=== PATIENT | female | born 2000 | race Caucasian/White ===

== ENCOUNTER 2024-02-28 05:40 | Emergency (ER) | payer OTHER ==
[~2024-02-28] VITALS: Ht 170.2 cm; Wt 116.0 kg
[2024-02-28] MEDS ORDERED: PRENTAB53 PO (05:47)
[2024-02-28] MEDS ORDERED: VENL75TA2 PO (05:47)
[2024-02-28 06:07] LABS: APPEARANCE, URINE HAZY (CLEAR); BACTERIA, URINE AUTO NEGATIVE (NEGATIVE); BILIRUBIN, URINE AUTO NEGATIVE (NEGATIVE); BLOOD, URINE BLOOD NEGATIVE (NEGATIVE); COLOR, URINE YELLOW (YELLOW); GLUCOSE, URINE (UA) AUTO NEGATIVE (NEGATIVE); KETONE, URINE AUTO NEGATIVE (NEGATIVE); LEUKOCYTE ESTERASE, URINE AUTO NEGATIVE (NEGATIVE); MUCUS, URINE SMALL (NEGATIVE); NITRITE, URINE AUTO NEGATIVE (NEGATIVE); PROTEIN, URINE AUTO NEGATIVE (NEGATIVE); RBC, URINE AUTO 2 /HPF (0-3); SPECIFIC GRAVITY URINE AUTO 1.011 (1.002-1.035); SQUAMOUS EPITHELIAL CELL UR AU 4 /HPF (0-6); UROBILINOGEN, URINE AUTO 0.2 mg/dL (0.0-2.0); WBC, URINE AUTO 1 /HPF (0-3)
[2024-02-28 06:33] LABS: BASO % 0.4 % (0.0-1.0); EOS # 0.1 10^3/uL (0.0-0.5); EOS % 1.9 % (0.0-3.0); HEMATOCRIT 39.1 % (36.0-47.0); HEMOGLOBIN 12.7 g/dl (12.0-15.5); LYMPH # 1.9 10^3/uL (1.5-5.0); LYMPH % 25.9 % (24.0-44.0); MEAN CORPUSCULAR HEMOGLOBIN 28.3 pg (27.0-33.0); MEAN CORPUSCULAR HGB CONC 32.5 g/dl (32.0-36.5); MEAN CORPUSCULAR VOLUME 87.3 fl (80.0-96.0); MONO # 0.4 10^3/uL (0.0-0.8); MONO % 4.8 % (2.0-8.0); NEUTROPHILS # 4.8 10^3/uL (1.5-8.5); NEUTROPHILS % 66.2 % (36.0-66.0); PLATELET COUNT, AUTOMATED 289 10^3/uL (150-450); RED BLOOD COUNT 4.48 10^6/uL (4.00-5.40); WHITE BLOOD COUNT 7.2 10^3/uL (4.0-10.0)
[2024-02-28 06:55] LABS: BLOOD UREA NITROGEN 7 MG/DL (9-23); CALCIUM LEVEL 9.5 MG/DL (8.5-10.1); CARBON DIOXIDE LEVEL 24 MMOL/L (20-31); CHLORIDE LEVEL 106 MMOL/L (98-107); CREATININE FOR GFR 0.61 MG/DL (0.55-1.30); GLOMERULAR FILTRATION RATE > 60.0 (>60); GLUCOSE, FASTING 88 MG/DL (60-100); SODIUM LEVEL 140 MMOL/L (136-145)
[2024-02-28 07:10] VITALS: BP 119/65; TEMP 98.1; O2SAT 99
[2024-02-28 07:10] LABS: HCG, SERUM QUANTITATIVE 3365.7 MIU/ML (<4.2)
== END 2024-02-28 08:06 | disposition home or self-care (01) ==
LOC: M ED 05:40
DX: O20.0 Threatened abortion (principal); O99.280 Endocrine, nutritional and metabolic diseases complicating pregnancy, unspecified trimester; Z79.810 Long term (current) use of selective estrogen receptor modulators (SERMs)

== ENCOUNTER 2024-03-12 07:36 | Emergency (ER) | payer OTHER ==
[~2024-03-12] VITALS: Ht 170.2 cm; Wt 177.7 kg
[~2024-03-12 07:36] MED LIST: PRENTAB53 PO; VENL75TA2 PO
[2024-03-12 08:34] LABS: APPEARANCE, URINE HAZY (CLEAR); BACTERIA, URINE AUTO NEGATIVE (NEGATIVE); BILIRUBIN, URINE AUTO NEGATIVE (NEGATIVE); BLOOD, URINE BLOOD 3+ (NEGATIVE); COLOR, URINE YELLOW (YELLOW); GLUCOSE, URINE (UA) AUTO NEGATIVE (NEGATIVE); KETONE, URINE AUTO NEGATIVE (NEGATIVE); LEUKOCYTE ESTERASE, URINE AUTO NEGATIVE (NEGATIVE); MUCUS, URINE SMALL (NEGATIVE); NITRITE, URINE AUTO NEGATIVE (NEGATIVE); PROTEIN, URINE AUTO 1+ mg/dL (NEGATIVE); RBC, URINE AUTO TNTC /HPF (0-3); SPECIFIC GRAVITY URINE AUTO 1.017 (1.002-1.035); SQUAMOUS EPITHELIAL CELL UR AU 4 /HPF (0-6); UROBILINOGEN, URINE AUTO 0.2 mg/dL (0.0-2.0); WBC, URINE AUTO 0 /HPF (0-3)
[2024-03-12 08:37] LABS: BASO % 0.4 % (0.0-1.0); EOS # 0.2 10^3/uL (0.0-0.5); EOS % 2.7 % (0.0-3.0); HEMATOCRIT 40.5 % (36.0-47.0); HEMOGLOBIN 13.3 g/dl (12.0-15.5); LYMPH # 1.5 10^3/uL (1.5-5.0); LYMPH % 19.7 % (24.0-44.0); MEAN CORPUSCULAR HEMOGLOBIN 28.6 pg (27.0-33.0); MEAN CORPUSCULAR HGB CONC 32.8 g/dl (32.0-36.5); MEAN CORPUSCULAR VOLUME 87.1 fl (80.0-96.0); MONO # 0.4 10^3/uL (0.0-0.8); MONO % 5.5 % (2.0-8.0); NEUTROPHILS # 5.4 10^3/uL (1.5-8.5); NEUTROPHILS % 70.7 % (36.0-66.0); PLATELET COUNT, AUTOMATED 294 10^3/uL (150-450); RED BLOOD COUNT 4.65 10^6/uL (4.00-5.40); WHITE BLOOD COUNT 7.7 10^3/uL (4.0-10.0)
[2024-03-12 10:15] VITALS: BP 110/68; TEMP 98; O2SAT 98
== END 2024-03-12 10:19 | disposition home or self-care (01) ==
LOC: M ED 07:36
DX: O46.91 Antepartum hemorrhage, unspecified, first trimester (principal); Z3A.01 Less than 8 weeks gestation of pregnancy; O99.280 Endocrine, nutritional and metabolic diseases complicating pregnancy, unspecified trimester; E28.2 Polycystic ovarian syndrome; Z79.810 Long term (current) use of selective estrogen receptor modulators (SERMs)

== ENCOUNTER 2024-07-18 14:28 | Emergency (ER) | payer OTHER ==
[2024-07-18] MEDS ORDERED: UNIS25TA3 PO (15:18)
[2024-07-18] MEDS ORDERED: ASPI-655 PO (15:18)
[2024-07-18] MEDS ORDERED: MACR100C43 PO (18:28)
== END 2024-07-18 14:30 | disposition admitted as inpatient to this hospital (09) ==
LOC: M ED 14:28
DX: Z53.21 Procedure and treatment not carried out due to patient leaving prior to being seen by health care provider (principal)

== ENCOUNTER 2024-07-18 14:33 | Outpatient (CLI) | payer OTHER ==
[2024-07-18] MEDS ORDERED: UNIS25TA3 PO (15:18)
[2024-07-18] MEDS ORDERED: ASPI-655 PO (15:18)
[2024-07-18 15:46] LABS: HEMATOCRIT 34.4 % (36.0-47.0); HEMOGLOBIN 11.1 g/dl (12.0-15.5); MEAN CORPUSCULAR HEMOGLOBIN 26.7 pg (27.0-33.0); MEAN CORPUSCULAR HGB CONC 32.3 g/dl (32.0-36.5); MEAN CORPUSCULAR VOLUME 82.9 fl (80.0-96.0); PLATELET COUNT, AUTOMATED 297 10^3/uL (150-450); RED BLOOD COUNT 4.15 10^6/uL (4.00-5.40); WHITE BLOOD COUNT 7.4 10^3/uL (4.0-10.0)
[2024-07-18 16:13] LABS: KETONE, URINE AUTO RFX NEGATIVE (NEGATIVE); MUCUS, URINE RFX SMALL (NEGATIVE); NITRITE, URINE AUTO RFX NEGATIVE (NEGATIVE); RBC, URINE AUTO RFX 3 /HPF (0-3); SQUAM EPITHELIAL CELL UR AURFX 34 /HPF (0-6)
[2024-07-18 16:14] LABS: LEUKOCYTE ESTERASE UR AUTO RFX 3+ (NEGATIVE); WBC, URINE AUTO RFX 16 /HPF (0-3)
[2024-07-18] MEDS ORDERED: MACR100C43 PO (18:28)
== END 2024-07-18 18:35 | disposition home or self-care (01) ==
LOC: M LDO 14:33
PROVIDERS: ATTEND Obstetrics & Gynecology
DX: O26.892 Other specified pregnancy related conditions, second trimester (principal); R10.2 Pelvic and perineal pain; Z3A.26 26 weeks gestation of pregnancy
CPT/HCPCS: 36415; 59025; 81001; 85027; 87086; G0463

== ENCOUNTER → 2024-09-30 | Outpatient (REF) | payer OTHER ==
[~2024-09-30] MED LIST changes: +AMOX875T2 PO; +ASPI-655 PO; +FERR32TA; +MACR100C43 PO; +POLY510P14; +UNIS25TA3 PO; +VENL37.598; +VITA500T9
== END ==
LOC: M PLALAB 09:11
PROVIDERS: ATTEND Advanced Practice Midwife
DX: Z34.93 Encounter for supervision of normal pregnancy, unspecified, third trimester (principal); Z3A.36 36 weeks gestation of pregnancy

== ENCOUNTER 2024-10-04 07:17 | Emergency (ER) | payer OTHER ==
[~2024-10-04] VITALS: Ht 170.2 cm; Wt 127.6 kg
[~2024-10-04 07:17] MED LIST changes: -AMOX875T2 PO; -FERR32TA; -POLY510P14; -VENL37.598; -VITA500T9
[2024-10-04] MEDS ORDERED: VITA500T9 (07:28)
[2024-10-04] MEDS ORDERED: VENL37.598 (07:28)
[2024-10-04] MEDS ORDERED: POLY510P14 (07:28)
[2024-10-04] MEDS ORDERED: FERR32TA (07:28)
[2024-10-04] MEDS ORDERED: AMOX875T2 PO (10:40)
[2024-10-04 10:50] VITALS: BP 138/97; TEMP 98; O2SAT 98
== END 2024-10-04 10:55 | disposition home or self-care (01) ==
LOC: M ED 07:17
DX: K02.9 Dental caries, unspecified (principal); E28.2 Polycystic ovarian syndrome; F41.9 Anxiety disorder, unspecified; Z79.2 Long term (current) use of antibiotics; Z79.899 Other long term (current) drug therapy

== ENCOUNTER 2024-10-18 13:28 | Inpatient (IN) | payer OTHER ==
[~2024-10-18] VITALS: Ht 170.2 cm; Wt 130.1 kg
[2024-10-18] VITALS (10 sets, daily range): BP systolic 130–180; BP diastolic 77–97; O2SAT 98–99
[~2024-10-18 13:28] MED LIST changes: +AMOX875T2 PO; +FERR32TA PO; +POLY510P14; +VENL37.598 PO; +VITA500T9 PO
[2024-10-18] MEDS ORDERED: PRENTAB9 PO (13:55)
[2024-10-18] MEDS ORDERED: ASPI81CH33 PO (13:55)
[2024-10-18] MEDS ORDERED: ACET-897 PO (13:55)
[2024-10-18] MEDS ORDERED: AMPICILLIN SOD 2 GM in DEXTROSE 5% (D5W) MINI-BAG PLU 100 ML IV STA (13:58)
[2024-10-18] MEDS: LACTATED RINGER'S 1000 ML IV STA (13:58)
[2024-10-18] MEDS ORDERED: TRANEXAMIC ACID INJection 1,000 MG in NS 100 ML IV PRN (14:00)
[2024-10-18] MEDS ORDERED: CARBOPROST TROMETHAMINE 250 MCG/ML AMP IM PRN (14:00)
[2024-10-18] MEDS ORDERED: OXYTOCIN DRIP 30 UNITS in IV 1 EA IV PRN (14:00)
[2024-10-18] MEDS ORDERED: LIDOCAINE 1% MDV 20 ML VIAL INFIL PRN (14:00)
[2024-10-18] MEDS ORDERED: OXYTOCIN INJ 10UNITS/ML 1ML VIAL IM PRN (14:00)
[2024-10-18] MEDS ORDERED: METHYLERGONOVINE MALEATE 0.2 MG/ML 1 ML VIAL IM PRN (14:00)
[2024-10-18] MEDS ORDERED: HOME MED LIST COMPLETE! XX SCH (14:00)
[2024-10-18 14:32] LABS: PLATELET COUNT, AUTOMATED 272 10^3/uL (150-450)
[2024-10-18] MEDS: miSOPROStol 50 MCG 1/2 TABLET PO SCH (15:23)
[2024-10-18 15:25] LABS: HIV 1&2 SCREEN NEGATIVE (NEGATIVE)
[2024-10-18 15:33] LABS: HEPATITIS C VIRUS ABY INDEX < 0.02 INDEX (<0.8)
[2024-10-18] MEDS ORDERED: AMPICILLIN SOD 1 GM in DEXTROSE 5% (D5W) ADV/MINI-BAG 50 ML IV SCH (18:00)
[2024-10-18 19:00] LABS: LDH LACTATE DEHYDROGENASE 144 U/L (120-246)
[2024-10-18 19:01] LABS: ALT/SGPT 14 U/L (7.0-40); AST/SGOT 14 U/L (<34); CREATININE FOR GFR 0.49 MG/DL (0.55-1.30); GLOMERULAR FILTRATION RATE > 90.0 (>60)
[2024-10-18 21:05] LABS: TOTAL PROTEIN,RANDOM URINE 16.9 MG/DL (0.0-14.0)
[2024-10-18] MEDS: ACETAMINOPHEN 325 MG TAB PO ONE (21:45)
[2024-10-19] VITALS (61 sets, daily range): BP systolic 90–149; BP diastolic 54–95; O2SAT 97–100
[2024-10-19] MEDS: LR 1,000 ML IV SCH (08:42)
[2024-10-19] MEDS: PENICILLIN G POTASSIUM 5 MU IV 5 MU in DEXTROSE 5% (D5W) MINI-BAG PLU 100 ML IV STA (08:47)
[2024-10-19] MEDS: OXYTOCIN DRIP 30 UNITS in IV 1 EA IV SCH (08:52)
[2024-10-19] MEDS ORDERED: NALOXONE INJ 0.4 MG/1 ML VIAL IV PRN (12:15)
[2024-10-19] MEDS ORDERED: FENTANYL 2 MCG/ML ROPIVACAINE 0.2% IN 0.9% NACL 100 ML IVBAG As Ordered ONE (12:15)
[2024-10-19] MEDS ORDERED: LR 500 ML IV PRN (12:15)
[2024-10-19] MEDS ORDERED: diphenhydrAMINE 50 MG/ML VIAL IV PRN (12:15)
[2024-10-19] MEDS ORDERED: EPIDURAL/PCA KEYS XX PRN (12:15)
[2024-10-19] MEDS: PEN G POT 3,000,000 UNIT/50 ML 3,000,000 UNIT in IV 1 EA IV SCH (13:14)
[2024-10-19] MEDS: FENTANYL/ROPIVACAINE/NACL BAG 100 ML EPIDURAL SCH (13:15)
[2024-10-19] MEDS: ONDANSETRON 4MG 2ML VIAL IV PRN (14:05)
[2024-10-20] VITALS (38 sets, daily range): BP systolic 88–164; BP diastolic 50–122; O2SAT 96–98
[2024-10-20] MEDS ORDERED: ACETAMINOPHEN 325 MG TAB PO PRN (07:15)
[2024-10-20] MEDS: LR 1,000 ML IV SCH (07:15)
[2024-10-20] MEDS ORDERED: ANUSOL HC CREAM 30 GM TOP PRN (07:15)
[2024-10-20] MEDS ORDERED: ONDANSETRON 4MG 2ML VIAL IV PRN (07:15)
[2024-10-20] MEDS ORDERED: RHOGAM 300MCG (1500IU) INJ IM SCH (07:15)
[2024-10-20] MEDS: OXYTOCIN DRIP 30 UNITS in IV 1 EA IV SCH (07:28)
[2024-10-20] MEDS: IBUPROFEN 800 MG TAB PO PRN (07:32)
[2024-10-20] MEDS: DIBUCAINE 1% OINTMENT 30 GM TOP PRN (08:05)
[2024-10-20] MEDS: PRENATAL VITAMINS CHEWABLE TABLET PO SCH (08:05)
[2024-10-20] MEDS: ACETAMINOPHEN 500 MG TAB PO PRN (08:06)
[2024-10-20] MEDS: MORPHINE 10 MG/ML 1 ML VIAL IV ONE (08:23)
[2024-10-20] MEDS: DOCUSATE SODIUM 100 MG CAPSULE PO SCH (09:00)
[2024-10-20] MEDS: FERROUS SULFATE 325 MG TAB PO SCH (09:00)
[2024-10-20] MEDS: IBUPROFEN 600 MG TAB PO PRN (13:34)
[2024-10-20] MEDS: VENLAFAXINE **XR** 37.5 MG CAPSULE PO SCH (20:05)
[2024-10-21 06:39] VITALS: BP 126/72; O2SAT 97
[2024-10-21 18:00] VITALS: BP 131/73; O2SAT 97
[2024-10-22 06:30] VITALS: BP 140/74; O2SAT 99
[2024-10-22] MEDS: MEASLES,MUMPS,RUBELLA VACCINE INJ (MMR-II) SC.IMMUN ONE (08:50)
[2024-10-22 10:00] VITALS: BP 146/92; O2SAT 96
== END 2024-10-22 12:10 | disposition home or self-care (01) | DRG 807 ==
LOC: M LDI 13:28 → M OBS 10-20 09:49
PROVIDERS: ADMIT Advanced Practice Midwife; ATTEND Obstetrics & Gynecology
PROC: 3E0P7GC Introduction of Other Therapeutic Substance into Female Reproductive, Via Natural or Artificial Opening (ICD-10-PCS; 2024-10-18)
PROC: 10907ZC Drainage of Amniotic Fluid, Therapeutic from Products of Conception, Via Natural or Artificial Opening (ICD-10-PCS; 2024-10-19)
PROC: 10E0XZZ Delivery of Products of Conception, External Approach (ICD-10-PCS; principal; 2024-10-20)
PROC: 0HQ9XZZ Repair Perineum Skin, External Approach (ICD-10-PCS; 2024-10-20)
DX: O13.4 Gestational [pregnancy-induced] hypertension without significant proteinuria, complicating childbirth (principal); Z37.0 Single live birth; E66.01 Morbid (severe) obesity due to excess calories; Z3A.39 39 weeks gestation of pregnancy; O99.214 Obesity complicating childbirth; O70.1 Second degree perineal laceration during delivery; O99.824 Streptococcus B carrier state complicating childbirth; Z79.82 Long term (current) use of aspirin; Z79.899 Other long term (current) drug therapy

== ENCOUNTER 2025-01-10 21:58 | Emergency (ER) | payer OTHER ==
[~2025-01-10] VITALS: Ht 170.2 cm; Wt 114.5 kg
[~2025-01-10 21:58] MED LIST changes: +ACET-897 PO; -ASPI-655 PO; +ASPI-737 PO; +ASPI81CH33 PO; +PRENTAB9 PO
[2025-01-10 22:02] VITALS: BP 130/88; TEMP 97.5; O2SAT 98
== END 2025-01-10 23:30 | disposition left against medical advice (07) ==
LOC: M ED 21:58
DX: Z53.21 Procedure and treatment not carried out due to patient leaving prior to being seen by health care provider (principal)

== ENCOUNTER 2025-02-07 02:49 | Emergency (ER) | payer OTHER ==
[~2025-02-07] VITALS: Ht 170.2 cm; Wt 113.6 kg
[2025-02-07 04:07] LABS: BASO # 0.0 10^3/uL (0.0-0.2); BASO % 0.3 % (0.0-1.0); EOS # 0.2 10^3/uL (0.0-0.5); EOS % 2.2 % (0.0-3.0); LYMPH # 1.9 10^3/uL (1.5-5.0); LYMPH % 24.5 % (24.0-44.0); MONO # 0.5 10^3/uL (0.0-0.8); MONO % 6.2 % (2.0-8.0); NEUTROPHILS # 5.1 10^3/uL (1.5-8.5); NEUTROPHILS % 66.3 % (36.0-66.0); PLATELET COUNT, AUTOMATED 297 10^3/uL (150-450)
[2025-02-07 04:32] LABS: ALT/SGPT 28 U/L (7.0-40); AST/SGOT 14 U/L (<34); CALCIUM LEVEL 9.4 MG/DL (8.5-10.1); CARBON DIOXIDE LEVEL 25 MMOL/L (20-31); CHLORIDE LEVEL 110 MMOL/L (98-107); CREATININE FOR GFR 0.76 MG/DL (0.55-1.30); GLOMERULAR FILTRATION RATE > 90.0 (>60); POTASSIUM SERUM 4.3 MMOL/L (3.5-5.1); SODIUM LEVEL 146 MMOL/L (136-145)
[2025-02-07] MEDS: ONDANSETRON 4MG/2ML VIAL IV ONE (04:39)
[2025-02-07] MEDS: KETOROLAC 30 MG/ML 1 ML VIAL IV ONE (04:39)
[2025-02-07 04:42] LABS: HCG, SERUM QUALITATIVE NEGATIVE (NEGATIVE)
[2025-02-07 05:10] LABS: KETONE, URINE AUTO RFX NEGATIVE (NEGATIVE); MUCUS, URINE RFX SMALL (NEGATIVE); NITRITE, URINE AUTO RFX NEGATIVE (NEGATIVE); RBC, URINE AUTO RFX 4 /HPF (0-3); SQUAM EPITHELIAL CELL UR AURFX 44 /HPF (0-6); WBC, URINE AUTO RFX 7 /HPF (0-3)
[2025-02-07 05:12] LABS: LEUKOCYTE ESTERASE UR AUTO RFX TRACE (NEGATIVE)
[2025-02-07] MEDS ORDERED: LEVS0.124 SL (06:10)
[2025-02-07 06:24] VITALS: BP 122/71; TEMP 98.2; O2SAT 98
== END 2025-02-07 06:26 | disposition home or self-care (01) ==
LOC: M ED 02:49
DX: K80.20 Calculus of gallbladder without cholecystitis without obstruction (principal); E78.5 Hyperlipidemia, unspecified; Z91.018 Allergy to other foods; Z91.040 Latex allergy status; Z79.899 Other long term (current) drug therapy
CPT/HCPCS: 76705; 80048; 80076; 81001; 83605; 83690; 84145; 84703; 85025; 87088; 96374; 99284; J1885; J2405